=== PATIENT | female | born 1970 | race Caucasian/White ===

== ENCOUNTER 2023-05-24 09:58 | Outpatient (REF) | payer BC, SELFPAY ==
[2023-05-24 11:12] LABS: MANUAL DIFF FLAG NO
[2023-05-24 11:14] LABS: Basophils Percent Auto 0.4 % (0-2); Eosinophils Absolute Auto 0.1 X10*3/uL (0.0-0.4); Eosinophils Percent Auto 1.1 % (0-4); Hematocrit 39.7 % (37.0-47.0); Hemoglobin 13.6 g/dl (12.0-16.0); Imm Gran Abs Auto 0.02 X10*3/uL (0.00-0.03); Imm Gran Pct Auto 0.3 % (0.0-0.4); Lymphocytes Absolute Auto 1.9 X10*3/uL (1.2-4.9); Mean Corpuscular HGB Conc 34.3 g/dl (31.0-35.0); Mean Corpuscular Hemoglobin 32.8 pg (27.0-33.0); Mean Corpuscular Volume 95.7 fL (80.0-98.0); Monocytes Absolute Auto 0.6 X10*3/uL (0.1-1.2); Monocytes Percent Auto 7.8 % (2-11); Neutrophils Absolute Auto 4.6 x10*3/uL (2.0-8.3); Neutrophils Percent Auto 64.4 % (45-73); Platelet Count 345 X10*3/uL (160-400); Red Blood Count 4.15 X10*6/uL (4.20-5.50); Red Cell Distribution Width 12.6 % (11.0-16.0); White Blood Count 7.2 X10*3/uL (4.8-10.8)
[2023-05-24 11:33] LABS: Alanine Aminotransferase 12 U/L (0-31); Albumin Level 3.9 g/dL (3.5-5.0); Alkaline Phosphatase 54 U/L (39-117); Anion Gap 12 (12-20); Aspartate Amino Transferase 14 U/L (5-31); Bilirubin Total 0.5 mg/dL (0.0-1.0); Blood Urea Nitrogen 8 mg/dL (9-16); Calcium 9.6 mg/dL (8.4-10.2); Carbon Dioxide 25 mmol/L (22-29); Chloride 105 mmol/L (96-108); Cholesterol 137 mg/dL (<200); Estimated Glomerular Filt Rate > 60; Glucose Random 94 mg/dL (60-115); HDL Cholesterol 52 mg/dL (>40); Iron 53 mcg/dL (30-160); LDL Cholesterol Calculated 72 mg/dL (<100); Percent Iron Saturation 24 % (15-50); Potassium 3.9 mmol/L (3.3-5.1); Sodium 138 mmol/L (135-145); Total Iron Binding Capacity 223 mcg/dL (228-428); Total Protein 6.9 g/dL (6.5-8.0); Triglycerides 66 mg/dL (<150); Unsaturated Iron Binding 170 ug/dL
[2023-05-24 11:55] LABS: Ferritin 348 ng/mL (10-250); Thyroid Stimulating Hormone 0.77 uIU/mL (0.32-4.0); Vitamin D 25-OH Total 27.6 ng/mL (>30)
[2023-05-24 12:03] LABS: Folate 12.1 ng/mL (> or = 4.0); Vitamin B12 1039 pg/mL (200-900)
== END 2023-05-24 09:59 | disposition home or self-care (01) ==
LOC: HO.MANLDS 09:58
PROVIDERS: Visit Provider Internal Medicine
DX: Z00.00 Encounter for general adult medical examination without abnormal findings (principal); R53.83 Other fatigue
CPT/HCPCS: 36415; 80053; 80061; 82306; 82607; 82728; 82746; 83540; 84443; 85025

== ENCOUNTER 2024-06-01 07:50 | Outpatient (REF) | payer BC, SELFPAY ==
--- OUTSIDE RECORDS SUMMARY | 2024-06-01 07:52 | XMS_ITS | Data Portability ---
Author Organization [facility], , [facility] Address [address] [place] [address] Care Team Providers Care Skate Hop Name Role Phone PRIYANKA RIVERA Primary Care Provider [phone] Assessment No assessment recorded. Plan of Treatment Reminders Order Date Submit Date Provider Last Modified By Organization Details Last Modified Time Details Appointments None recorded. Lab None recorded. Referral None recorded. Procedures None recorded. Surgeries None recorded. Imaging None recorded. Medication Orders diclofenac sodium 50 mg tablet,del ayed release 2015 016 INTERFACE [id number], [address] [place], [address], 6 09:44:37 Patient TargetsNo targets recorded. Patient InstructionsNo instructions recorded. Reason for Referral None Reported. Problems Name Problem SNOMED Code Status Onset Date Resolution Date Notes Provider Name and Address Organization Details Recorded Time Internal derangement of right knee Active 016 Nahun Smith MD [address] [place] [address], [phone], [facility] 6 09:43:40 Problem Notes None recorded. Procedures Surgical History Date Name Laterality Status Provider Name and Address Organization Details Recorded Time 7 Knee (Right) Injection completed Nahun Smith MD [address] [place] [address], [phone], [facility] 05/03/2016 09:10:12 Imaging Results None recorded. Procedure Notes None recorded. Medical Equipment None Reported. Allergies No known drug allergies Medications Name Sig Start Date Stop Date Status Note LastModified by Organization Details LastModified Time diclofenac potassium 50 mg tablet TAKE 1 TABLET BY MOUTH THREE TIMES A DAY FOR 10 DAYS 07/11 completed Not Available Not Available Not Available omeprazole 20 mg capsule,duc yed release active Not Available Not Available Not Available etodolac 400 mg tablet TAKE 1 TABLET BY MOUTH TWICE A DAY active Not Available Not Available No t Available diclofenac sodium 50 mg tablet,delay ed release 1 po up to tid as needed active Not Available Not Available No t Available Vitals Date Recorded Body weight Body height Body mass index (BMI) Heart rate Systolic blood pressure Diastolic blood pressure Provider Name and Address Organization Details Last Updated DateTime 6 [address].1 g 162.56 cm 33.6 kg/m2 76 /min 124 mm[Hg] 62 mm[Hg] Pablo Lamb LPN [facility] 6 09:09:02 Date Recorded Body height Body weight Body mass index (BMI) Heart rate Systolic blood pressure Diastolic blood pressure Provider Name and Address Organization Details Last Updated DateTime 7 162.56 cm 14802.3 3 g 33.1 kg/m2 72 /min 110 mm[Hg] 60 mm[Hg] Pablo Lamb LPN [facility] 7 08:49:50 Social History Question Answer Notes LastModified by Organizat ion Details LastModified Time Tobacco Smoking Status Former Smoker Pablo Lamb LPN [facility] 04/16/2016 09:09:30 What Is Your Level Of Alcohol Consumption? Moderate [email or web address] Information not available 04/16/2016 How Much Tobacco Do You Chew? 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 Information not available 04/16/2016 When Did You Quit Smoking? 16+yearssince lastcigarette Information not available 04/16/2016 How Many Days In The Past Year Have You Had A Heavy Drinking Consumption (4+ Female, 5+ Male)? 300 [email or web address] Information not available 04/16/2016 How Many Children Do You Have? 1 Information not available 04/16/2016 Sex: Unknown Functional Status None recorded. Mental Status None recorded. Family History Nothing Reported Notes:adopted Medical History No medical history recorded. Gynecological HistoryNo gynecological history recorded. Obstetrics History GPAL:G 0 P 0 0 0 0 Past Encounters Encounter ID Performer Location Encounter Start Date Encounter Closed Date Diagnosis/Indication Diagnosis SNOMED-CT Code Diagnosis ICD10 Code Diagnosis Note [id number] Nahun Smith MD Rheumatol [address] [address] 04/16/2016 08:45:32 04/20/2016 07:30:56 Internal derangement of right knee 2504300521 16279 M23.91 Symptoms started with a defined minor injury. A month later describes what must have been a tense, painful effusion lasting 2-3 weeks. Since then low grade sx's, but worse after activity. Findings today of trace to small effusion on R. X rays report notes some mild patella spurring and medial narrowing. I think this is all consistent with mechanica l derangemen t rather than any significan t degree of either degenerati ve arthritis or inflammato ry arthritis. Diagnostic aspiration would be useful and we discussed that she may well see some improvemen t with local steroid injection. I offered to inject today, but has busy shopping day before and wants to schedule this a couple of weeks from now. Diclofenac at low dose seems helpful. 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 Will try intra-honey cular injection, but if this is not helpful, I would advise orthopedic consultati on. Discussed. Health Concerns Section Related Observation LastModified by Organization Detai ls LastModified Time None Recorded Concern Status LastModified by Organization Details LastModified Time None Recorded Advance Directives Directive None Recorded Payers Encounter Date Sequence Insurance Name Policy Number Policy Olson Covered Member ID Olson Member ID Guarantor Name 04/16/2016 1 [place] [facility] [place] - [place] PREFERRED 90 (PPO) [id number] Coral Peres [id number] Coralkayla Peres 04/16/2016 2 [place] [facility] [id number] Graeme Boyler [id number] Coralkayla Peres 05/03/2016 1 [place] [facility] [place] - [place] PREFERRED 90 (PPO) [id number] Coral Peres [id number] Coral Peres 05/03/2016 2 [place] [facility] - [employer] [id number] Graeme Peresjr [id number] oCral Peres Notes Date Note Type Note Provider Name and Address Organization Details Recorded Time 04/16/2016 text/html This is a very pleasant 45 y/o woman being seen at the request of Dr Rivera for R knee pain, some arthritis on x ray. Patient reports no prior major MSK issues except some occasional LBP.In May, was sitting with legs underneath her on couch, had karyn p papin R knee as she went to stand up. She continued to have some discomfort, but manageable until about 1 mo later when R knee became very swollen, very painful for about 2-3 weeks. She was taking high doses of Aleve without relief, was seen in [facility], given diclofenac 50 mg, and has taken this on occasion since. She ahs attended PT. R knee still has aching pain, not severe, worse after activity. Climbing ladder into truck is painful, leads with L leg. Able to walk > 1 mo, but some acing. No major swelling since June. No locking or buckling. No calf swelling or pain. Nahun Smith MD [address] [place] [address], [phone], [facility] 04/16/2016 16:22:12 05/03/2016 text/html This is a very pleasant 45 y/o woman whom I recently saw for R knee pain. Sxs for almost a year at this point. Most pain is medial. Intermittent swelling. When I saw her 2 weeks ago there was R knee effusion and plan was to return for diagnostic aspiration and injection. She presents for this today. Nahun Smith MD [address] [place] [address], [phone], [facility] 05/03/2016 09:12:32 OBGyn Episode No OBEpisode recorded.
--- OUTSIDE RECORDS SUMMARY | 2024-06-01 07:53 | XMS_ITS | Data Portability ---
Author Organization [facility], Home Service Address [address] [place] [address] Assessment Encounter Date Assessment Date Assessment LastModified by Organization Details LastModified Time 01/27/2022 01/27/2022 Patient agreed and verbally consents to this audio and video Telehealth appt via a secure platform [email or web address] Not available 01/27/2022 09:57:11 Plan of Treatment Reminders Order Date Submit Date Provider Last Modified By Organization Details Last Modified Time Details Appointments ANNUAL EXAM 2025 10:30A M DR RIVERA Not available Not available Not available Lab CMP, serum or plasma 2023 024 [facility], [address] [place] [address], [id number], 05/25/2023 11:16:52 CBC w/ auto diff 2023 024 [facility], [address] [place] [address], [id number], 05/24/2023 09:48:08 lipid panel, blood 2023 024 [facility], [address] [place] [address], [address], 05/24/2023 09:48:08 vitamin B12 + folate, serum or blood 2023 024 [facility], [address] [place] [address], [address], 05/24/2023 09:48:08 vitamin D, 25-hydrox y, total, serum 2023 024 [facility], [address] [facility], [place], [address], 05/24/2023 09:48:08 iron + TIBC + ferritin, serum 2023 024 [facility], [address] [place] [address], [address], 05/24/2023 09:48:08 TSH, serum or plasma 2023 024 [facility], [address] [place] [address], [place], [address], 05/24/2023 09:48:08 CMP, serum or plasma 2024 025 [facility], [address] [place] [address], [address], 05/29/2024 12:31:15 CBC w/ auto diff 2024 025 [facility], [address] [place] [address], [place], [address], 05/29/2024 12:31:15 lipid panel, blood 2024 025 [facility], [address] [place] [address], [address], 05/29/2024 12:31:15 vitamin D, 25-hydrox y, total, serum 2024 025 [facility], [address] [place], [address], 05/29/2024 12:31:15 Referral None recorded. Procedures None recorded. Surgeries None recorded. Imaging XR, foot, 3 or more view 2019 020 IRAIDA Not available 06/19/2019 12:44:55 Medication Orders diclofena c potassium 50 mg tablet 2018 019 s[facility]o [facility], [address] [place] [address], [address], 06/19/2019 09:56:28 Prilosec OTC 20 mg tablet,de layed release [address], [address] [place] [address], [address], 05/24/2023 09:27:21 etodolac 400 mg tablet 2019 020 [facility] [address] [place] [address], [address], 05/24/2023 09:27:16 Bactrim DS 800 mg-160 mg tablet [address], [address] [place] [address], [address], 05/24/2023 09:27:26 triamcino lone acetonide 0.1 % topical cream [address], [address] [place] [address], [address], 05/24/2023 09:27:32 Patient TargetsNo targets recorded. Patient Instructions Encounter Date Encounter Id Patient Instructions Last Modified By Organization Details Last Modified Time 05/29/2018 [id number] plantar fasciitis: exercises Not available 05/29/2018 10:35:27 plantar fasciitis: care instructions Not available 05/29/2018 10:35:27 06/19/2019 [id number] plantar fasciitis: exercises Not available 06/19/2019 10:22:20 plantar fasciitis: care instructions Not available 06/19/2019 10:22:19 Reason for Referral None Reported. Results Created Date Observation Date Name Description Value Unit Range Abnormal Flag Note LastModifiedBy Organization Detail LastModifiedTime 05/31/19 19 05/24/2017 aleksandra HICKS bilat eral No observ ation record ed. BARCODE Not Available 2018 09:56:08 06/01/19 19 06/01/2018 MAMMO , scree chapis, bilat eral No observ ation record ed. [email or web address] [address], [address], 06/01/2018 20:39:36 06/04/19 20 06/04/2019 MAMMO , tomos ynthe sis, bilat eral No observ ation record ed. [email or web address] [address], [address], 06/05/2019 08:30:44 06/19/19 20 06/19/2019 XR, foot, 3 or more view No observ ation record ed. [email or web address] [address], [address], 06/20/2019 09:08:15 06/09/19 21 06/09/2020 MAMMO , scree chapis, digit al, bilat eral No observ ation record ed. [email or web address] [facility] [address] [place] [address], [address], 06/09/2020 15:46:44 01/19/20 23 01/04/2023 MAMMO , scree chapis, digit al, bilat eral No observ ation record ed. [email or web address] [address], [address], 01/19/2023 06:39:20 01/09/20 24 01/09/2024 MAMMO , scree chapis, digit al, bilat eral No observ ation record ed. [email or web address] [place] [address], [address], 05/29/2024 12:18:57 Result Notes None recorded. Problems Name Problem SNOMED Code Status Onset Date Resolution Date Notes Provider Name and Address Organization Details Recorded Time Dermoid cyst of head 159085800 Completed 202105/29/2024 Removal Reason: resolved Heber Rivera, DO [address] [place], [address], [facility] 12:22:21 Abscess [id number] Completed 202105/29/2024 Removal Reason: resolved Heber Rivera DO [address] [place], [address], [facility] 12:22:33 Fatigue 24331051 Completed 202305/29/2024 Removal Reason: resolved Heber Rivera DO [address] [place], [address], [facility] 12:22:46 Problem Notes None recorded. Procedures Surgical History Date Name Laterality Status Provider Name and Address Organization Details Recorded Time 8 Most Recent Mammogram completed [facility] 05/26/2018 16:37:06 7 Date of Last Pap Smear completed [facility] 05/26/2018 16:37:36 Imaging Results Imaging Date Name Status LastModified by Organiz ation Details LastModified Time 05/24/2017 MAMMO, screening, bilateral completed BARCODE Information not available 05/31/2018 09:56:08 06/01/2018 MAMMO, screening, bilateral completed [address], [address], 06/01/2018 20:39:36 06/04/2019 MAMMO, tomosynthesis, bilateral completed [address], [address], 06/05/2019 08:30:44 06/19/2019 XR, foot, 3 or more view completed [address], [address], 06/20/2019 09:08:15 06/09/2020 MAMMO, screening, digital, bilateral completed [address] [facility] [address] [place] [address], [address], 06/09/2020 15:46:44 01/04/2023 MAMMO, screening, digital, bilateral completed [email or web address] [address], [address], 01/19/2023 06:39:20 01/09/2024 MAMMO, screening, digital, bilateral completed [email or web address] [address], [address], 05/29/2024 12:18:57 Procedure Notes None recorded. Medical Equipment None Reported. Allergies No known drug allergies Medications Name Sig Start Date Stop Date Status Note LastModified by Organization Details LastModified Time sulfamethox azole 800 mg-trimetho prim 160 mg tablet TAKE 1 TABLET BY MOUTH EVERY 12 HOURS FOR 10 DAYS 05/24 completed Not Available Not Available Not Available triamcinolo ne acetonide 0.1 % topical cream APPLY THIN COAT TO AFFECTED AREA TWICE A DAY 05/24 completed Not Available Not Available Not Available diclofenac potassium 50 mg tablet Take 1 tablet 3 times a day by oral route for 10 days. 06/19 completed Not Available Not Available Not Available etodolac 400 mg tablet Take 1 tablet twice a day by oral route for 30 days. 05/24 completed Not Available Not Available Not Available Prilosec OTC 20 mg tablet,duc yed release Take 1 tablet by oral route for 30 days. 05/24 completed Not Available Not Available Not Available Aleve Take two tablets prn 05/24 completed Not Available Not Available Not Available Vitals Date Recorded Body height Body mass index (BMI) Body weight Heart rate Oxygen saturation Oxygen saturation in Arterial blood by Pulse oximetry Systolic blood pressure Diastolic blood pressure Provider Name and Address Organization Details Last Updated DateTime 0 161.93 cm 32.2 kg/m2 53454.1 8 g 82 /min 97 % 97 % 114 mm[Hg] 72 mm[Hg] [facility] 0 09:57:42 Date Recorded Body height Body mass index (BMI) Body weight Heart rate Oxygen saturation Oxygen saturation in Arterial blood by Pulse oximetry Systolic blood pressure Diastolic blood pressure Provider Name and Address Organization Details Last Updated DateTime 4 161.93 cm 21.1 kg/m2 62971.5 5 g 57 /min 98 % 98 % 122 mm[Hg] 74 mm[Hg] Heber Rivera, DO [address] [place], [address] 4 09:26:42 Date Recorded Body height Body mass index (BMI) Body weight Heart rate Oxygen saturation Oxygen saturation in Arterial blood by Pulse oximetry Systolic blood pressure Diastolic blood pressure Provider Name and Address Organization Details Last Updated DateTime 5 162.56 cm 23.2 kg/m2 08720.9 7 g 70 /min 97 % 97 % 114 mm[Hg] 62 mm[Hg] Heber Rivera, DO [address] [place], [address], [facility] 5 12:12:02 Date Recorded Body weight Heart rate Oxygen saturation Oxygen saturation in Arterial blood by Pulse oximetry Systolic blood pressure Diastolic blood pressure Provider Name and Address Organization Details Last Updated DateTime 9 25653.2 6 g 66 /min 98 % 98 % 110 mm[Hg] 62 mm[Hg] Alessandra Guzman [facility] 9 10:22:54 Social History Question Answer Notes LastModified by Organizat ion Details LastModified Time Tobacco Smoking Status Former Smoker Not Available [facility] 02/26/2020 03:36:24 What Was The Date Of Your Most Recent Tobacco Screening? 05/29/2024 [email or web address] Information not available 05/29/2024 How Many Years Have You Smoked Tobacco? 3 [id number] Information not available 02/26/2020 Sex: Unknown Functional Status None recorded. Mental Status None recorded. Family History Nothing Reported. Medical History No medical history recorded. Gynecological History Statement/Question Response Date of Last Pap Smear 04/06/2017 Most Recent Mammogram 05/24/2017 Obstetrics History GPAL:G 0 P 0 0 0 0 Past Encounters Encounter ID Performer Location Encounter Start Date Encounter Closed Date Diagnosis/Indication Diagnosis SNOMED-CT Code Diagnosis ICD10 Code Diagnosis Note [id number] July CLAUS Nicholson [facility] [address] [place] [address] [place] [address] 05/29/2018 10:13:22 05/29/2018 13:38:37 Plantar fasciitis of right foot [id number] 7218739 M72.2 [id number] CLAUS Kang [facility] [address] [facility] [address] 06/19/2019 09:48:26 06/19/2019 10:32:27 Plantar fasciitis of right foot 6657151890 3225163 M72.2 will get xr try the etodolac which was helpful for 1 month rx priolosec for stomach protection take etodolac with meals if after 1 month the pain returns after d/c of med, then will recommend seeing podiatry again [id number] CARL SANFORD [facility] [address] [facility] [address] 01/27/2022 09:18:57 01/27/2022 10:29:08 Abscess 272925247 L02.91 will fu for ID if necessary [id number] Heber Rivera [facility] [address] [facility] [address] 05/24/2023 09:22:04 05/24/2023 10:42:51 Active or passive immunization 516142508 Z23 utd Adult heal th examination 869556138 Z00.00 Fatigue 53336415 R53.83 not bad [id number] Heber Rivera [facility] [address] [facility] [address] 05/29/2024 12:07:09 05/29/2024 14:28:10 Active or passive immunization 495726134 Z23 utd Adult heal th examination 215203532 Z00.00 actually doing quite well and is very active skiing and yogadenies Depression screening 171 337135 Z13.31 negative Health Concerns Section Related Observation LastModified by Organization Detai ls LastModified Time None Recorded Concern Status LastModified by Organization Details LastModified Time None Recorded Advance Directives Directive None Recorded Payers Encounter Date Sequence Insurance Name Policy Number Policy Olson Covered Member ID Olson Member ID Guarantor Name 05/29/2018 1 [place] [facility] [id number] Graeme Silva Itzoyjr [id number] 04 Coral Ja 06/19/2019 1 [place] [facility] [id number] Graeme Silva Itzoyjr [id number] 04 Coral [place] 01/27/2022 1 [place] [facility] [id number] Graeme Silva Savoyjr [id number] 04 Coral Ja 05/24/2023 1 [place] [facility] [id number] Graeme Silva Savoyjr [id number] 04 Coral Ja 05/29/2024 1 [place] [facility] [id number] Graeme Silva Savoyjr [id number] Notes Date Note Type Note Provider Name a nd Address Organization Details Recorded Time 9 text/html c/o:right arch of foot pain sx started: 2 months agoinjury: no immediate injury, but believes it started while she was stepping on a ladder on her arch while wearing shoespain scale: 8/10 quality of pain: seemed it was bit better, but then wore snow boots and its been much more painful since radiation: toward the top of the foot and up the grajeda sx improved with: initially aleve and icing were helping, but not since this past weekend sx worsened with: walking/weight bearing. foot eventually goes numb with walking associated sx: seems randomly better or worse, doesn't seem to be connected to any particular shoe had tried a brace for achilles heel tendinitis, btu that eventually stopped helping and may have worsened. tried kings bandage which initially helped as well and has since stopped 12 system ROS negative except where noted above- denies: chest pain, palpitations, sob, ankle swelling, visual problems, hearing problems, muscle aches or pains, numbness or tingling extremities, abdominal pain, bowel issues, bladder issues, sexual dysfunction, abnormal bleeding, sx of sinus/respiratory infection , headaches, dizziness/lightheaded ness, rashes, or nail changes. CLAUS Kang [address] [place], [address], [facility] 05/29/2018 11:10:48 0 text/html last year came in for foot pain and was started on anti-inflammatory, night splint and podiatry referral. she was seen there and they recommended a specific splint as well as orthotics. but the only suggestions were too costly for the patient. the pain did modestly improve but then a board of wood fell on the top of the foot about 4 months ago and the pain was worse than ever. she is taking aleve or rx of etodolac, which she actually had from her knee from her arthritis doctor. she took it regularly for a full week with complete pain relief, but as soon as she stopped the med the pain came back. her knee is starting to bother her because she walks funny. the pain is worse in the morning and foot is stiff, then improves to a dull ache with walking around. CLAUS Kang [address] [place], [address], [facility] 06/19/2019 10:24:10 2 text/html c/o lump telemed video with realtime audio and videopatient consents to video the patient reports that since last week she has had a lump (small, about 0.5 cm) on the right side of her head, along her templehas a patch of eczema in that area she was scratching quiet a bitlump is warm, red and painfulpossible abscess due to skin disruption and bacterial infiltrationwill start on bactrim and topical steriodfu after if no improvement so I can I/D it with a swab to send out CARL SANFORD [address] [place], [address], [facility] 01/27/2022 09:57:37 4 text/html Annual WellnessReported bypatient.Diet and Nutrition:healthy diet Fracture Risk:no history of fractures; no recent explained fracture; no sudden unexplained fractures; no previous musculoskeletal injuries Physical Activity:exercises on a regular basis; recent increase in physical activity; good physical condition Additional Lifestyle Factors:no tobacco use; no alcohol intake; stopped drinking alcohol Depression Risk:never feels sad, empty, or tearful; no loss of interest in activities; no significant changes in weight; no sleep disturbances or insomnia; no agitation; no loss of energy; no feelings of worthlessness or guilt; no thoughts of suicide; no history of depression; no history of mood disorders Hearing:no loss of hearing Vision:no vision problems here fo rrechk and is doing ok has kept all her weight offno cp no no sobbowels ok sleep ok energy better Heber Rivera DO [address] [place] [address], [address], [facility] 05/24/2023 09:52:27 text/html Annual WellnessReported bypatient.Diet and Nutrition:healthy diet Fracture Risk:no history of fractures; no recent explained fracture; no sudden unexplained fractures; no previous musculoskeletal injuries Physical Activity:exercises on a regular basis; recent increase in physical activity; good physical condition Additional Lifestyle Factors:no tobacco use; no alcohol intake; stopped drinking alcohol Depression Risk:never feels sad, empty, or tearful; no loss of interest in activities; no significant changes in weight; no sleep disturbances or insomnia; no agitation; no loss of energy; no feelings of worthlessness or guilt; no thoughts of suicide; no history of depression; no history of mood disorders Hearing:no loss of hearing Vision:no vision problems . Heber Rivera DO [address] [place] [address], [address], [facility] 05/29/2024 13:36:22 OBGyn Episode No OBEpisode recorded.
--- OUTSIDE RECORDS SUMMARY | 2024-06-01 07:53 | XMS_ITS | Continuity of Care Document ---
Author Organization [place] [facility], [facility] Address [address] [facility] [place] [address] Assessment No assessment recorded. Plan of Treatment Reminders Order Date Submit Date Provider Last Modified By Organization Details Last Modified Time Details Appointments ANNUAL EXAM 2025 10:30A M DR RIVERA Not available Not available Not available Lab CMP, serum or plasma 2024 025 [facility], [address] [place] [address], [address], 05/29/2024 12:31:15 CBC w/ auto diff 2024 025 [facility], [address] [place] [address], [address], 05/29/2024 12:31:15 lipid panel, blood 2024 025 [facility], [address] [place] [address], [address], 05/29/2024 12:31:15 vitamin D, 25-hydro xy, total, serum 2024 025 [facility], [address] [place] [address], [address], 05/29/2024 12:31:15 Referral None recorded . Procedures None recorded . Surgeries None recorded . Imaging None recorded . Medication Orders None recorded . Patient TargetsNo targets recorded. Patient InstructionsNo instructions recorded. Reason for Referral None Reported. Problems Name Problem SNOMED Code Status Onset Date Resolution Date Notes Provider Name and Address Organization Details Recorded Time Dermoid cyst of head 044346459 Completed 202105/29/2024 Removal Reason: resolved Heber Rivera, [address] [place], [address], [facility] 12:22:21 Abscess [id number] Completed 202105/29/2024 Removal Reason: resolved Heber Rivera DO [address] [place], [address], [facility] 12:22:33 Fatigue 67603966 Completed 202305/29/2024 Removal Reason: resolved Heber Rivera DO [address] [place], [address], [facility] 12:22:46 Problem Notes None recorded. Procedures Surgical History Date Name Laterality Status Provider Name and Address Organization Details Recorded Time 8 Most Recent Mammogram completed [facility] 05/26/2018 16:37:06 7 Date of Last Pap Smear completed [facility] 05/26/2018 16:37:36 Imaging Results None recorded. Procedure Notes None [...] tablet by oral route for 30 days. 02/25/ 2020 01/30 /2024 completed Not Available Not Available Not Available Dorothea Take two tablets prn 05/24 completed Not Available Not Available Not Available Vitals Date Recorded Body height Body mass index (BMI) Body weight Heart rate Oxygen saturation Oxygen saturation in Arterial blood by Pulse oximetry Systolic blood pressure Diastolic blood pressure Provider Name and Address Organization Details Last Updated DateTime 5 162.56 cm 23.2 kg/m2 45536.9 7 g 70 /min 97 % 97 % 114 mm[Hg] 62 mm[Hg] Heber ShereenKennedi Rivera DO [address] [facility], [place], [address], [place] [facility] 5 12:12:02 Social History Question Answer Notes LastModified by Organizat ion Details LastModified Time Tobacco Smoking Status Former Smoker Not Available [facility] 03:36:24 What Was The Date Of Your Most Recent Tobacco Screening? 05/29/2024 [email or web address] Information not available 05/29/2024 How Many Years Have You Smoked Tobacco? 3 [id number] Information not available 02/26/2020 Sex: Unknown Functional [...] SNOMED-CT Code Diagnosis ICD10 Code Diagnosis Note [id number] Heber Rivera DO [facility] [address] [facility] [address] 05/29/2024 12:07:09 05/29/2024 14:28:10 Active or passive immunization 326701126 Z23 utd Adult heal th examination 717216792 Z00.00 actually doing quite well and is very active skiing and yogadenies Depression screening 171 329928 Z13.31 negative Health Concerns Section Related Observation LastModified by Organization Detai ls LastModified Time None Recorded Concern Status LastModified by Organization Details LastModified Time None Recorded Payers Encounter Date Sequence Insurance Name Policy Number Policy Olson Covered Member ID Olson Member ID Guarantor Name 05/29/2024 1 [facility] [id number] Graeme Mobleyoyjr [id number] 04 Coral Peres Notes Date Note Type Note Provider Name a nd Address Organization Details Recorded Time 5 text/html Annual WellnessReported bypatient.Diet and Nutrition:healthy diet [...] of hearing Vision:no vision problems . Heber Rivera, DO [address] [place], [address], [facility] 05/29/2024 13:36:22 OBGyn Episode No OBEpisode recorded.
[2024-06-01 13:32] LABS: MANUAL DIFF FLAG NO
[2024-06-01 13:44] LABS: Basophils Percent Auto 0.6 % (0-2); Eosinophils Absolute Auto 0.1 X10*3/uL (0.0-0.4); Hematocrit 40.3 % (37.0-47.0); Hemoglobin 13.2 g/dl (12.0-16.0); Lymphocytes Absolute Auto 1.7 X10*3/uL (1.2-4.9); Lymphocytes Percent Auto 33.5 % (20-40); Mean Corpuscular HGB Conc 32.8 g/dl (31.0-35.0); Mean Corpuscular Hemoglobin 32.2 pg (27.0-33.0); Mean Corpuscular Volume 98.3 fL (80.0-98.0); Mean Platelet Volume 10.3 fL (9.4-12.3); Monocytes Absolute Auto 0.4 X10*3/uL (0.1-1.2); Monocytes Percent Auto 7.7 % (2-11); Neutrophils Absolute Auto 2.8 x10*3/uL (2.0-8.3); Neutrophils Percent Auto 56.2 % (45-73); Platelet Count 249 X10*3/uL (160-400); White Blood Count 4.9 X10*3/uL (4.8-10.8)
[2024-06-01 14:00] LABS: Alanine Aminotransferase 16 U/L (0-31); Alkaline Phosphatase 49 U/L (39-117); Anion Gap 15 (12-20); Aspartate Amino Transferase 22 U/L (5-31); Bilirubin Total 0.6 mg/dL (0.0-1.0); Blood Urea Nitrogen 14 mg/dL (9-16); Calcium 9.2 mg/dL (8.4-10.2); Carbon Dioxide 25 mmol/L (22-29); Chloride 104 mmol/L (96-108); Cholesterol 158 mg/dL (<200); Estimated Glomerular Filt Rate > 60; Glucose Random 85 mg/dL (60-115); HDL Cholesterol 81 mg/dL (>40); LDL Cholesterol Calculated 72 mg/dL (<100); Potassium 3.9 mmol/L (3.3-5.1); Sodium 140 mmol/L (135-145); Total Protein 6.7 g/dL (6.5-8.0); Triglycerides 26 mg/dL (<150)
[2024-06-06 17:04] LABS: VITAMIN D (1,25 OH) D3 45 pg/mL; Vit D (1,25-Dihydroxy) Total 45 pg/mL (18-72); Vitamin D (1,25 OH) D2 <8 pg/mL
== END 2024-06-01 07:51 | disposition home or self-care (01) ==
LOC: HO.MANLDS 07:50
PROVIDERS: Visit Provider Internal Medicine
DX: Z00.00 Encounter for general adult medical examination without abnormal findings (principal); Z13.6 Encounter for screening for cardiovascular disorders
CPT/HCPCS: 36415; 80053; 80061; 82652; 85025